=== PATIENT | female | born 1940 | race Caucasian/White ===

== ENCOUNTER 2019-10-26 14:59 | Emergency (ER) | payer SELFPAY ==
[~2019-10-26] VITALS: Ht 165.1 cm; Wt 64.5 kg
[2019-10-26 15:06] VITALS: BP 185/76
--- NOTE | 2019-10-26 16:41 | NUR ---
PT REQUESTED TO HAVE BP TAKEN AGAIN 138/87. PT STATES SHE FEELS MUCH BETTER NOW THAT ITS DOWN. SHE STATES SHE WANTS TO GO HOME AND WILL CALL HER PMD IN AM. SHE STATES SHE WILL MONITOR BP T/O THE EVENING AND TAKE MEDS ORDERED AND RETURN IF ANY CHANGES.
== END 2019-10-26 16:58 | disposition left against medical advice (07) ==
LOC: ER 15:00
DX: R03.0 Elevated blood-pressure reading, without diagnosis of hypertension (principal); Z53.21 Procedure and treatment not carried out due to patient leaving prior to being seen by health care provider

== ENCOUNTER 2024-03-13 07:18 | Day surgery (SDC) | payer MEDICARE, OTHER ==
[2024-03-09 16:08] LABS: BASOPHILS % (AUTO) 0.3 % (0-1); EOSINOPHILS # (AUTO) 0.2 X10'3 (0-0.9); EOSINOPHILS % (AUTO) 2.1 % (0-6); LYMPHOCYTES % (AUTO) 41.3 % (21-51); MEAN CORPUSCULAR HEMOGLOBIN 32.9 PG (27.0-31.0); MEAN CORPUSCULAR HGB CONC 33.6 g/dL (33.0-36.5); MEAN PLATELET VOLUME 9.3 FL (7.4-10.4); MONOCYTES # (AUTO) 2.1 X10'3 (0-0.9); MONOCYTES % (AUTO) 21.4 % (2-12); NEUTROPHILS # (AUTO) 3.4 X10'3 (1.8-7.7); NEUTROPHILS % (AUTO) 34.9 % (42-75); PRE OP HEMATOCRIT 40.1 % (35.0-45.0); PRE OP HEMOGLOBIN 13.5 g/dL (12.0-16.0); PRE OP PLATELET COUNT 137 X10'3 (140-440); PRE OP WHITE BLOOD COUNT 9.6 10'3 (4.8-10.8); RED BLOOD COUNT 4.09 X10'6 (4.20-5.60); RED CELL DISTRIBUTION WIDTH 12.9 % (11.5-14.5)
[2024-03-09 16:23] LABS: ALBUMIN 3.8 G/DL (3.4-5.0); ALBUMIN/GLOBULIN RATIO 1.4 (1.1-1.5); ALKALINE PHOSPHATASE 91 IU/L (46-116); BLOOD UREA NITROGEN 19 MG/DL (7-18); BUN/CREATININE RATIO 19.2 (10.0-20.0); CALCIUM 8.9 MG/DL (8.5-10.1); CHLORIDE 105 MMOL/L (99-107); CREATININE 0.99 MG/DL (0.40-0.90); PRE OP ALT 22 U/L (30-65); PRE OP ANION GAP 8 (8-16); PRE OP AST 15 U/L (10-37); PRE OP BILIRUB, TOTAL 0.7 MG/DL (0.0-1.0); PRE OP GLUCOSE 155 MG/DL (70-104); PRE OP POTASSIUM 3.4 MMOL/L (3.4-5.1); PRE OP SODIUM 140 MMOL/L (135-145); TOTAL CARBON DIOXIDE 26.9 MMOL/L (24-32); TOTAL PROTEIN 6.6 G/DL (6.4-8.2); eGFR 53 ML/MIN
[2024-03-09 16:40] LABS: TOTAL CELLS COUNTED 100
[2024-03-09 16:41] LABS: PLATELET ESTIMATE DECREASED
[2024-03-13] VITALS (8 sets, daily range): BP systolic 149–166; BP diastolic 66–89; PULSE 52–58; RESP 16–20; TEMP 98.9; O2SAT 88–98
[~2024-03-13] VITALS: Ht 165.1 cm; Wt 61.5 kg
[2024-03-13] MEDS: cefazolin 2gm/D5W 100mL 100 ML IV ONE (05:30)
[2024-03-13] MEDS: DOCUMENT DATE & TIME OF BETA-BLOCKER PO ONE (06:00)
[~2024-03-13 07:18] MED LIST: ACET-864 PO; ASPI81TA52 PO; ATEN50TA8 PO; ATOR20TA66 PO; NAPR220C15 PO
[2024-03-13] MEDS: famotidine 20mg tablet PO ONE (08:58)
[2024-03-13] MEDS: ringers solution, lacted 1,000 ML IV SCH (08:59)
[2024-03-13] MEDS ORDERED: fentaNYL/PF 50MCG/1 ML 2ML syringe ONE (09:49)
[2024-03-13] MEDS ORDERED: propofol 10mg/ml 20ml vial IV ONE (10:07)
[2024-03-13] MEDS ORDERED: midazolam 1 mg/ML 2ml injection ONE (10:17)
[2024-03-13] MEDS: LIDOcaine 2% (20mg/ml) 5ml vial ONE (10:54)
[2024-03-13] MEDS: BUPIVAcaine/PF 2.5mg/ml (0.25%) 10ml vial ONE (10:54)
== END 2024-03-13 11:45 | disposition home or self-care (01) ==
LOC: PAS 07:18
PROVIDERS: ATTEND Orthopaedic Surgery Hand Surgery
DX: G56.01 Carpal tunnel syndrome, right upper limb (principal); I44.7 Left bundle-branch block, unspecified; I10 Essential (primary) hypertension; E78.5 Hyperlipidemia, unspecified; M19.90 Unspecified osteoarthritis, unspecified site; I25.2 Old myocardial infarction; Z87.891 Personal history of nicotine dependence; Z79.82 Long term (current) use of aspirin; Z79.899 Other long term (current) drug therapy; Z98.890 Other specified postprocedural states
CPT/HCPCS: 80053; 82948; 85007; 85025; 93005; A4215; A4618; A6449; J0690; J2250; J2704; J3010; J3490; J7120